=== PATIENT | female | born 1965 | race Two or more races ===

== ENCOUNTER 2022-07-23 16:32 | Inpatient (IN) | payer OTHER, MEDICAID ==
[~2022-07-23] VITALS: Ht 170.2 cm; Wt 80.3 kg
[2022-07-23 19:22] LABS: Basophils # (auto) 0 10 ^3/uL (0-0.2); Basophils % (auto) 0.6 % (0.0-2.0); Eosinophils # (auto) 0.1 10 ^3/uL (0-0.8); Hematocrit 37.4 % (36.0-46.0); Hemoglobin 12.2 g/dL (12.2-16.2); Lymphocytes # (auto) 2.4 10 ^3/uL (0.4-5.4); Lymphocytes % (auto) 33.3 % (10.0-50.0); Mean Corpuscular Hemoglobin 26.2 pg (28.0-32.0); Mean Corpuscular Hgb Conc. 32.5 g/dL (32.0-36.0); Mean Corpuscular Volume 80.8 fL (80.0-100.0); Monocytes # (auto) 0.6 10 ^3/uL (0-1.3); Monocytes % (auto) 7.9 % (0.0-12.0); Neutrophils # (auto) 4.1 10 ^3/uL (1.6-8.6); Neutrophils % (auto) 56.2 % (37.0-80.0); Nucleated Red Blood Cells % 0.1 %; Red Blood Cells 4.63 10^6/uL (4.0-5.20); Red Cell Distribution Width 16.3 % (11.8-14.3); White Blood Cell 7.3 10^3/uL (4.4-10.8)
[2022-07-23 19:43] LABS: Albumin 3.5 g/dL (3.4-5.0); Calcium 9.2 mg/dL (8.5-10.1); Potassium 3.5 mmol/L (3.5-5.1)
[2022-07-23 19:58] LABS: BUN/Creatinine Ratio 11.8; Bilirubin, Total 0.4 mg/dL (0.2-1.0); Total Protein 7.6 g/dL (6.4-8.2)
[2022-07-24] MEDS ORDERED: SODIUM CHLORIDE 0.9% 1,000 ML IV ONE
[2022-07-24] MEDS ORDERED: NITROGLYCERIN 0.4 MG SL TAB SL PRN (01:00)
[2022-07-24] MEDS ORDERED: ONDANSETRON HCL 4 MG/2 ML VIAL IV PRN (01:00)
[2022-07-24] MEDS ORDERED: ACETAMINOPHEN 325 MG TAB PO PRN (01:00)
[2022-07-24] MEDS ORDERED: DEXTROSE (50%) 50ML SYRG IV PRN (01:00)
[2022-07-24] MEDS ORDERED: MORPHINE SULFATE INJ 2 MG/ml SYRG IV PRN ×2 (01:00)
[2022-07-24] MEDS: HYDROcodone-ACET 5/325MG TAB PO PRN ×2 (05:56→12:40)
[2022-07-24] MEDS: InsuLIN REG 1unit/0.01ml Soln (100units/ml) SC SCH ×3 (07:00→17:42)
[2022-07-24] MEDS: ACCU-CHEK COMFORT CURVE STRIP VI SCH ×4 (07:02→22:00)
[2022-07-24] MEDS: FAMOTIDINE (10MG/ML) 2ML VL IV SCH (10:35)
[2022-07-24] MEDS: APIXABAN 5 MG TAB PO SCH ×2 (10:35→22:02)
[2022-07-24] MEDS: SOD CHL 0.45% 1,000 ML IV SCH ×2 (10:36→14:20)
[2022-07-24 10:41] VITALS: BP 136/80
[2022-07-24 11:01] VITALS: BP 136/80
[2022-07-24] MEDS ORDERED: LACTULOSE 20Gm/30ML SOLN PO PRN ×2 (12:00→17:15)
[2022-07-24 13:00] VITALS: BP 137/64
[2022-07-24] MEDS ORDERED: ATOR10TA52 PO (15:48)
[2022-07-24] MEDS ORDERED: LISI-716 PO (15:48)
[2022-07-24] MEDS ORDERED: SERT50TA19 PO (15:48)
[2022-07-24] MEDS ORDERED: SEMA2INJ SC (15:48)
[2022-07-24] MEDS ORDERED: TIZA4CAP7 PO (15:48)
[2022-07-24] MEDS ORDERED: CARV6.2551 PO (15:48)
[2022-07-24] MEDS ORDERED: OMEP-263 PO (15:48)
[2022-07-24] MEDS ORDERED: QUET200T45 PO (15:48)
[2022-07-24] MEDS ORDERED: TIOT17SP IN (15:48)
[2022-07-24] MEDS ORDERED: FLUT0.05 NAS (15:48)
[2022-07-24] MEDS ORDERED: PREG50CA PO (15:48)
[2022-07-24] MEDS ORDERED: APIX5TAB PO (15:48)
[2022-07-24] MEDS ORDERED: DIGO0.12 PO (15:48)
[2022-07-24] MEDS ORDERED: ALPR0.5T7 PO (15:48)
[2022-07-24] MEDS ORDERED: MORP15TA PO (15:48)
[2022-07-24] MEDS ORDERED: MONT-8 PO (15:48)
[2022-07-24] MEDS ORDERED: NALO1TAB4 PO (15:48)
[2022-07-24] MEDS ORDERED: INS7030I SC (15:48)
[2022-07-24 17:00] VITALS: BP 131/82
[2022-07-24] MEDS ORDERED: LORazepam 2MG/ML-1ML VIAL IV PRN (17:30)
[2022-07-24 20:00] VITALS: BP 123/74
[2022-07-24 22:00] VITALS: BP 123/74
[2022-07-24] MEDS: FLUTICASONE PROP NASAL SPR 0.05 % (50MCG) 16GM EACHNOSTRI SCH (22:01)
[2022-07-24] MEDS: CARVEDILOL 3.125 MG TAB PO SCH (22:02)
[2022-07-24] MEDS: PREGABALIN 25 MG CAP PO SCH (22:02)
[2022-07-24] MEDS: QUEtiapine FUMARATE 100 MG TAB PO SCH (22:03)
[2022-07-25] MEDS: InsuLIN REG 1unit/0.01ml Soln (100units/ml) SC SCH ×5 (00:37→22:06)
[2022-07-25] MEDS: HYDROcodone-ACET 5/325MG TAB PO PRN ×2 (01:24→22:01)
[2022-07-25] MEDS: SOD CHL 0.45% 1,000 ML IV SCH ×2 (04:00→17:00)
[2022-07-25 05:15] VITALS: BP 135/68
[2022-07-25 06:20] LABS: Basophils # (auto) 0 10 ^3/uL (0-0.2); Eosinophils # (auto) 0.1 10 ^3/uL (0-0.8); Lymphocytes # (auto) 1.8 10 ^3/uL (0.4-5.4); Lymphocytes % (auto) 39.2 % (10.0-50.0); Neutrophils # (auto) 2.2 10 ^3/uL (1.6-8.6); Neutrophils % (auto) 47.9 % (37.0-80.0); White Blood Cell 4.6 10^3/uL (4.4-10.8)
[2022-07-25 06:23] LABS: Basophils % (auto) 0.5 % (0.0-2.0); Eosinophils % (auto) 2.8 % (0.0-7.0); Hematocrit 32.6 % (36.0-46.0); Hemoglobin 10.9 g/dL (12.2-16.2); Mean Corpuscular Hemoglobin 26.8 pg (28.0-32.0); Mean Corpuscular Hgb Conc. 33.3 g/dL (32.0-36.0); Mean Corpuscular Volume 80.3 fL (80.0-100.0); Monocytes # (auto) 0.4 10 ^3/uL (0-1.3); Monocytes % (auto) 9.6 % (0.0-12.0); Nucleated Red Blood Cells % 0.2 %; Red Blood Cells 4.06 10^6/uL (4.0-5.20)
[2022-07-25] MEDS: ACCU-CHEK COMFORT CURVE STRIP VI SCH ×4 (06:28→22:02)
[2022-07-25 06:37] LABS: Albumin 2.7 g/dL (3.4-5.0); Calcium 8.6 mg/dL (8.5-10.1); Potassium 3.5 mmol/L (3.5-5.1)
[2022-07-25 06:42] LABS: BUN/Creatinine Ratio 10.8; Bilirubin, Total 0.3 mg/dL (0.2-1.0)
[2022-07-25 08:00] VITALS: BP 147/73
[2022-07-25] MEDS: DIGOXIN 0.125 MG TAB PO SCH (09:35)
[2022-07-25] MEDS: PREGABALIN 25 MG CAP PO SCH ×2 (09:35→21:59)
[2022-07-25] MEDS: ALPRAZolam 0.5 MG TAB PO SCH (09:35)
[2022-07-25] MEDS: FLUTICASONE PROP NASAL SPR 0.05 % (50MCG) 16GM EACHNOSTRI SCH ×2 (09:35→21:56)
[2022-07-25] MEDS: FAMOTIDINE (10MG/ML) 2ML VL IV SCH (09:35)
[2022-07-25] MEDS: SERTRALINE HCL 50 MG TAB PO SCH (09:36)
[2022-07-25] MEDS: APIXABAN 5 MG TAB PO SCH ×2 (09:36→21:58)
[2022-07-25] MEDS: MONTELUKAST SODIUM 10 MG TAB PO SCH (09:36)
[2022-07-25] MEDS: LISINOPRIL 10 MG TAB PO SCH (09:36)
[2022-07-25] MEDS: CARVEDILOL 3.125 MG TAB PO SCH ×2 (09:37→22:00)
[2022-07-25] MEDS ORDERED: ATORVASTATIN 20 MG TAB PO SCH (10:00)
[2022-07-25] MEDS: SPIRIVA RESPIMAT IN SCH (10:00)
[2022-07-25] MEDS ORDERED: [UNRECOGNIZED DRUG - OTHER] SC SCH (10:00)
[2022-07-25] MEDS ORDERED: SEMAGLUTIDE SC SCH (10:00)
[2022-07-25] MEDS: MOVANTIK 25MG TABLET PO SCH (10:00)
[2022-07-25] MEDS ORDERED: TIZANIDINE HCL 4 MG TABLET PO PRN (10:00)
[2022-07-25 13:00] VITALS: BP 128/72
[2022-07-25 17:10] VITALS: BP 138/99
[2022-07-25] MEDS: QUEtiapine FUMARATE 100 MG TAB PO SCH (21:59)
[2022-07-25 22:00] VITALS: BP 150/91
[2022-07-26] MEDS: SOD CHL 0.45% 1,000 ML IV SCH (04:48)
[2022-07-26 05:00] VITALS: BP 145/93
[2022-07-26 06:12] LABS: Basophils # (auto) 0 10 ^3/uL (0-0.2); Eosinophils # (auto) 0.1 10 ^3/uL (0-0.8); Lymphocytes # (auto) 2.3 10 ^3/uL (0.4-5.4); Mean Corpuscular Hemoglobin 26.9 pg (28.0-32.0); Monocytes # (auto) 0.5 10 ^3/uL (0-1.3); Monocytes % (auto) 8.2 % (0.0-12.0); White Blood Cell 5.8 10^3/uL (4.4-10.8)
[2022-07-26 06:16] LABS: Basophils % (auto) 0.6 % (0.0-2.0); Eosinophils % (auto) 1.7 % (0.0-7.0); Hematocrit 34.1 % (36.0-46.0); Hemoglobin 11.4 g/dL (12.2-16.2); Lymphocytes % (auto) 38.7 % (10.0-50.0); Mean Corpuscular Hgb Conc. 33.4 g/dL (32.0-36.0); Mean Corpuscular Volume 80.6 fL (80.0-100.0); Neutrophils % (auto) 50.8 % (37.0-80.0); Red Blood Cells 4.23 10^6/uL (4.0-5.20); Red Cell Distribution Width 16.3 % (11.8-14.3)
[2022-07-26 06:18] LABS: Potassium 3.6 mmol/L (3.5-5.1)
[2022-07-26] MEDS: ACCU-CHEK COMFORT CURVE STRIP VI SCH ×4 (06:19→21:42)
[2022-07-26] MEDS: InsuLIN REG 1unit/0.01ml Soln (100units/ml) SC SCH ×4 (06:19→21:45)
[2022-07-26 06:22] LABS: BUN/Creatinine Ratio 16.3
[2022-07-26 06:23] LABS: Bilirubin, Total 0.2 mg/dL (0.2-1.0); Total Protein 6.6 g/dL (6.4-8.2)
[2022-07-26] MEDS: HYDROcodone-ACET 5/325MG TAB PO PRN (06:25)
[2022-07-26 09:00] VITALS: BP 132/73
[2022-07-26] MEDS: FAMOTIDINE (10MG/ML) 2ML VL IV SCH (09:44)
[2022-07-26] MEDS: APIXABAN 5 MG TAB PO SCH ×2 (09:44→21:39)
[2022-07-26] MEDS: SERTRALINE HCL 50 MG TAB PO SCH (09:44)
[2022-07-26] MEDS: ALPRAZolam 0.5 MG TAB PO SCH (09:44)
[2022-07-26] MEDS: DIGOXIN 0.125 MG TAB PO SCH (09:44)
[2022-07-26] MEDS: PREGABALIN 25 MG CAP PO SCH ×2 (09:44→21:41)
[2022-07-26] MEDS: CARVEDILOL 3.125 MG TAB PO SCH ×2 (09:45→21:39)
[2022-07-26] MEDS: MOVANTIK 25MG TABLET PO SCH (09:47)
[2022-07-26] MEDS: SPIRIVA RESPIMAT IN SCH (09:47)
[2022-07-26] MEDS: FLUTICASONE PROP NASAL SPR 0.05 % (50MCG) 16GM EACHNOSTRI SCH ×2 (09:51→21:38)
[2022-07-26] MEDS: MONTELUKAST SODIUM 10 MG TAB PO SCH (09:52)
[2022-07-26] MEDS: LISINOPRIL 10 MG TAB PO SCH (09:54)
[2022-07-26 13:00] VITALS: BP 128/69
[2022-07-26] MEDS: QUEtiapine FUMARATE 100 MG TAB PO SCH (21:41)
[2022-07-26 22:00] VITALS: BP 142/64
[2022-07-27 05:00] VITALS: BP 158/75
[2022-07-27] MEDS: InsuLIN REG 1unit/0.01ml Soln (100units/ml) SC SCH ×4 (06:27→21:37)
[2022-07-27] MEDS: ACCU-CHEK COMFORT CURVE STRIP VI SCH ×4 (06:27→21:37)
[2022-07-27 09:00] VITALS: BP 145/71
[2022-07-27] MEDS: SPIRIVA RESPIMAT IN SCH (10:00)
[2022-07-27] MEDS: CARVEDILOL 3.125 MG TAB PO SCH ×2 (10:00→21:35)
[2022-07-27] MEDS: MOVANTIK 25MG TABLET PO SCH (10:00)
[2022-07-27] MEDS: FAMOTIDINE (10MG/ML) 2ML VL IV SCH (10:38)
[2022-07-27] MEDS: FLUTICASONE PROP NASAL SPR 0.05 % (50MCG) 16GM EACHNOSTRI SCH ×2 (10:38→21:34)
[2022-07-27] MEDS: MONTELUKAST SODIUM 10 MG TAB PO SCH (10:40)
[2022-07-27] MEDS: ALPRAZolam 0.5 MG TAB PO SCH (10:40)
[2022-07-27] MEDS: SERTRALINE HCL 50 MG TAB PO SCH (10:40)
[2022-07-27] MEDS: PREGABALIN 25 MG CAP PO SCH ×2 (10:41→21:37)
[2022-07-27] MEDS: APIXABAN 5 MG TAB PO SCH ×2 (10:41→21:35)
[2022-07-27] MEDS: LISINOPRIL 10 MG TAB PO SCH (10:44)
[2022-07-27] MEDS: DIGOXIN 0.125 MG TAB PO SCH (10:51)
[2022-07-27 13:00] VITALS: BP 145/73
[2022-07-27] MEDS: HYDROcodone-ACET 5/325MG TAB PO PRN (14:59)
[2022-07-27 17:19] VITALS: BP 150/89
[2022-07-27 20:00] VITALS: BP 147/77
[2022-07-27] MEDS: QUEtiapine FUMARATE 100 MG TAB PO SCH (21:36)
[2022-07-27 22:00] VITALS: BP 163/86
[2022-07-28 05:00] VITALS: BP 134/78
[2022-07-28] MEDS: ACCU-CHEK COMFORT CURVE STRIP VI SCH ×2 (05:41→12:10)
[2022-07-28] MEDS: InsuLIN REG 1unit/0.01ml Soln (100units/ml) SC SCH ×2 (05:41→12:14)
[2022-07-28 09:00] VITALS: BP 130/85
[2022-07-28] MEDS ORDERED: SERTRALINE HCL 50 MG TAB PO SCH (10:00)
[2022-07-28] MEDS: SPIRIVA RESPIMAT IN SCH (10:00)
[2022-07-28] MEDS: MOVANTIK 25MG TABLET PO SCH (10:00)
[2022-07-28] MEDS: ALPRAZolam 0.5 MG TAB PO SCH ×2 (11:42→14:14)
[2022-07-28] MEDS: APIXABAN 5 MG TAB PO SCH (11:45)
[2022-07-28] MEDS: DIGOXIN 0.125 MG TAB PO SCH (11:46)
[2022-07-28] MEDS: MONTELUKAST SODIUM 10 MG TAB PO SCH (11:47)
[2022-07-28] MEDS: LISINOPRIL 10 MG TAB PO SCH (11:49)
[2022-07-28] MEDS: CARVEDILOL 3.125 MG TAB PO SCH (11:50)
[2022-07-28] MEDS: FAMOTIDINE (10MG/ML) 2ML VL IV SCH (11:52)
[2022-07-28] MEDS: PREGABALIN 25 MG CAP PO SCH (12:09)
[2022-07-28] MEDS: FLUTICASONE PROP NASAL SPR 0.05 % (50MCG) 16GM EACHNOSTRI SCH (12:09)
[2022-07-28 13:00] VITALS: BP 141/80
[2022-07-28 16:02] VITALS: BP 141/80
[2022-07-28 16:49] VITALS: BP 155/88
== END 2022-07-28 18:30 | DRG 948 ==
LOC: ER 16:32 → EDBD 16:32 → OVERFLOW 07-24 01:07 → WEST WING 07-24 08:11
PROVIDERS: ADMIT Nurse Practitioner Family; ATTEND Internal Medicine Geriatric Medicine
DX: R53.1 Weakness (principal); M62.82 Rhabdomyolysis; E11.9 Type 2 diabetes mellitus without complications; I10 Essential (primary) hypertension; F32.A Depression, unspecified; I48.91 Unspecified atrial fibrillation; W18.39XA Other fall on same level, initial encounter; Z20.822 Contact with and (suspected) exposure to COVID-19; J44.9 Chronic obstructive pulmonary disease, unspecified; K59.00 Constipation, unspecified; Z79.01 Long term (current) use of anticoagulants; Z90.710 Acquired absence of both cervix and uterus; Y93.89 Activity, other specified; Y92.090 Kitchen in other non-institutional residence as the place of occurrence of the external cause; Y99.8 Other external cause status; E53.8 Deficiency of other specified B group vitamins; F41.9 Anxiety disorder, unspecified
CPT/HCPCS: 36415; 70450; 70551; 72125; 72148; 74176; 80053; 82550; 82607; 82746; 82962; 83605; 83690; 83735; 84443; 84484; 85025; 96360; 97110; 97116; 97530; G0378; J1815; J3490